=== PATIENT | female | born 1940 | race Caucasian/White ===

== ENCOUNTER → 2016-12-15 15:01 | Outpatient (CLI) | payer MEDICARE, OTHER ==
[2014-12-28 14:47] VITALS: BMI 32.6
[~2016-12-15 15:01] MED LIST: ELIQUIS5 MG PO; FEXOFENADINE H180 MG PO; GABAPENTIN100 MG PO; HYDROCHLOROTH12.5 M1 PO; K-DUR20 MEQ PO; LOPRESSOR25 MG PO; METOLAZONE2.5 MG PO; MOBIC7.5 MG PO; NORVASC5 MG PO; PRILOSEC20 MG PO; ROBINUL 1 MG TAB1 MG PO; SEROQUEL25 MG PO; ULTRAM50 MG PO
[2016-12-16 08:46] LABS: BASOPHILS 0.3 % (0-2); EOSINOPHILS 3.7 % (0-7); HEMATOCRIT 39.9 % (36.0-48.0); HEMOGLOBIN 13.5 g/dL (12-16); IMMATURE GRANULOCYTES 0.1 % (0-5); LYMPHOCYTES 23.2 % (15-50); MCH 30.1 pg (26.0-34.0); MCHC 33.8 g/dL (31.0-37.0); MCV 89.1 fL (80.0-100.0); MEAN PLATELET VOLUME 10.1 fL (7.4-10.4); MONOCYTES 9.7 % (2-11); RBC 4.48 10x6/uL (4.00-5.40); RDW 14.6 % (11.5-14.5); WBC 6.8 10x3/uL (4.8-10.8)
[2016-12-16 08:50] LABS: PLATELET COUNT 224 10x3/uL (130-400)
[2016-12-16 08:54] LABS: HEMOGLOBIN A1C 6.1 % (4.8-6.0)
[2016-12-16 09:06] LABS: APTT 27.8 SECONDS (22.8-39.4); INR 0.93 (0.85-1.17); PROTIME 12.3 SECONDS (11.6-15.0)
[2016-12-16 09:11] LABS: ANION GAP 10.2 mmol/L (8-16); BILIRUBIN - TOTAL 0.37 mg/dL (0.2-1.3); CALCIUM 8.9 mg/dL (8.5-10.1); CARBON DIOXIDE 29.7 mmol/L (21.0-32.0); CREATININE - SERUM 0.9 mg/dL (0.6-1.3); POTASSIUM - SERUM 3.9 mmol/L (3.5-5.1); PROTEIN - SERUM 7.6 g/dL (6.4-8.2); T4 THYROXIN - FREE 1.26 ng/dL (0.76-1.46); THYROID STIMULATING HORMONE 1.98 uIU/mL (0.36-3.74)
[2016-12-18 08:09] LABS: ANA REFLEX - DIRECT Negative (Negative)
[2016-12-18 12:11] LABS: ESTRADIOL 27.4 pg/mL (()); FOLATE (FOLIC ACID) - SERUM >20.0 ng/mL (>3.0); PROGESTERONE <0.1 ng/mL (())
[2016-12-19 13:16] LABS: ESTROGENS - TOTAL 227 pg/mL (())
[2016-12-19 17:13] LABS: T3 - REVERSE 28.1 ng/dL (9.2-24.1)
== END | disposition home or self-care (01) ==
LOC: D.LAB 14:16
DX: F03.90 Unspecified dementia, unspecified severity, without behavioral disturbance, psychotic disturbance, mood disturbance, and anxiety (principal); R41.82 Altered mental status, unspecified; G47.33 Obstructive sleep apnea (adult) (pediatric); R76.0 Raised antibody titer; R53.83 Other fatigue; R79.1 Abnormal coagulation profile; E53.8 Deficiency of other specified B group vitamins; E53.0 Riboflavin deficiency; E53.1 Pyridoxine deficiency; D68.52 Prothrombin gene mutation; E34.9 Endocrine disorder, unspecified; E50.7 Other ocular manifestations of vitamin A deficiency; E56.0 Deficiency of vitamin E; E55.9 Vitamin D deficiency, unspecified; R79.82 Elevated C-reactive protein (CRP); E78.5 Hyperlipidemia, unspecified

== ENCOUNTER → 2020-06-14 10:07 | Outpatient (CLI) | payer MEDICARE, OTHER ==
[2020-02-25 12:23] VITALS: BMI 39.3
[~2020-06-14 10:07] MED LIST changes: +DONEPEZIL HCL5 MG PO; +FUROSEMIDE20 MG PO; +K-TAB10 MEQ PO; +MULTI-DAY VITAM1 TAB PO; +VITAMIN D-32000 UNI1 PO
== END | disposition home or self-care (01) ==
LOC: D.LAB 10:07
PROVIDERS: ATTEND Internal Medicine Pulmonary Disease
DX: Z11.52 Encounter for screening for COVID-19 (principal)

== ENCOUNTER → 2020-06-18 12:43 | Outpatient (CLI) | payer MEDICARE, OTHER ==
[2020-02-25 12:23] VITALS: BMI 39.3
== END | disposition home or self-care (01) ==
LOC: D.RT 12:43
PROVIDERS: ATTEND Internal Medicine Pulmonary Disease
DX: R06.09 Other forms of dyspnea (principal)

== ENCOUNTER → 2020-07-30 10:48 | Outpatient (CLI) | payer MEDICARE, OTHER ==
[2020-02-25 12:23] VITALS: BMI 39.3
== END | disposition home or self-care (01) ==
LOC: D.CT 10:48
PROVIDERS: ATTEND Internal Medicine Pulmonary Disease
DX: R93.89 Abnormal findings on diagnostic imaging of other specified body structures (principal)

== ENCOUNTER 2020-08-09 09:51 | Day surgery (SDC) | payer MEDICARE, OTHER ==
[~2020-08-09] VITALS: Ht 162.6 cm; Wt 97.7 kg
[2020-08-09 10:28] LABS: BASOPHILS 0.9 % (0-2); EOSINOPHILS 2.9 % (0-7); HEMATOCRIT 40.1 % (36.0-48.0); HEMOGLOBIN 13.2 g/dL (12-16); LYMPHOCYTES 24.7 % (15-50); MCH 28.6 pg (26.0-34.0); MCV 86.7 fL (80.0-100.0); MEAN PLATELET VOLUME 8.5 fL (7.4-10.4); MONOCYTES 9.8 % (2-11); NEUTROPHILS 61.7 % (40-80); PLATELET COUNT 221 10x3/uL (130-400); RBC 4.63 10x6/uL (4.00-5.40); RDW 14.7 % (11.5-14.5); WBC 6.1 10x3/uL (4.8-10.8)
[2020-08-09 11:02] LABS: APTT 29.1 SECONDS (22.8-39.4); PROTIME 12.2 SECONDS (11.6-15.0)
[2020-08-09 11:21] VITALS: BP 146/71; Ht 162.6 cm; Wt 97.7 kg
--- NOTE | 2020-08-09 13:47 | NUR ---
PT COUGHING. NOBLOOD IN SPUTUM AT THIS TIME.
--- NOTE | 2020-08-09 13:49 | NUR ---
PT STATED THROAT WAS SORE. EDUCATED ON ETT TUBE
--- NOTE | 2020-08-09 15:20 | NUR ---
PAGED DR OLSON TO NOTIFY THAT XRAY HAD BEEN DONE AND IS IN COMPUTER 1556 DR OLSON RETURNED CALL STATING IF PT CAN EAT CRACKER AND DRINK WATER WITH NO COMPLICATIONS AND VITALS ARE STABLE, PT MAY GO HOME. 1608 DC TEACHING TO PT AND SON COMPLETED. VERBALIZED UNDERSTANDING. 1617 PT DRINKING WATER AND EATING CRACKER WITH NO COMPLICATIONS. PIV REMOVED WITH CATHETER INTACT. THIS NURSE ASSISTED PT TO BATHROOM TO VOID, ASSISTED PT TO GET DRESSED. 1652 PT DC'D VIA WC TO POV ACCOMPANIED BY THIS NURSE WITH ALL BELONGINGS AND DC PACKET. SON DRIVING.
[2020-08-10 15:12] LABS: ACID FAST SMEAR Negative (()); AFB SPECIMEN PROCESSING Concentration (())
[2020-08-11 14:11] LABS: FUNGUS STAIN Final report (())
== END 2020-08-09 16:52 | disposition home or self-care (01) ==
LOC: D.OPS 09:51
PROVIDERS: ATTEND Internal Medicine Pulmonary Disease
DX: R91.8 Other nonspecific abnormal finding of lung field (principal)